=== PATIENT | female | born 1955 | race Caucasian/White ===

== ENCOUNTER 2021-11-15 10:16 | Emergency (ER) | payer BC ==
[2021-11-15] MEDS ORDERED: Ketorolac 30 MG/ML SDV IVPUSH ONE (10:45)
== END 2021-11-15 12:45 | disposition home or self-care (01) ==
LOC: JP.ED 10:16
DX: M54.50 Low back pain, unspecified (principal); Z91.041 Radiographic dye allergy status
CPT/HCPCS: 74176; 96374; 99283; J1885